=== PATIENT | female | born 1995 | race Caucasian/White ===

== ENCOUNTER 2017-05-03 12:10 | Observation (INO) | payer OTHER ==
[~2017-05-03] VITALS: Ht 160 cm; Wt 86.2 kg
[2017-05-03] MEDS ORDERED: PREN-380 PO (13:50)
== END 2017-05-03 16:49 | disposition home or self-care (01) ==
LOC: MLD 12:10
PROVIDERS: ADMIT Obstetrics & Gynecology; ATTEND Obstetrics & Gynecology
DX: O36.8130 Decreased fetal movements, third trimester, not applicable or unspecified (principal); Z3A.38 38 weeks gestation of pregnancy
CPT/HCPCS: 59025; 76805; 81000; G0378; Q0092

== ENCOUNTER 2017-05-04 10:50 | Inpatient (IN) | payer OTHER ==
[~2017-05-04] VITALS: Ht 160 cm; Wt 86.2 kg
[~2017-05-04 10:50] MED LIST: PREN-380 PO
[2017-05-05] MEDS ORDERED: PROMETHAZINE 25 MG TAB PO PRN (00:10)
[2017-05-05] MEDS ORDERED: NALBUPHINE 10 MG/ML AMP IVP PRN (00:10)
[2017-05-05] MEDS: LACTATED RINGERS 1,000 ML IV SCH ×2 (00:55→08:13)
[2017-05-05] MEDS ORDERED: MISOPROSTOL 25 MCG TAB ONE ×3 (00:57→10:17)
[2017-05-05 01:01] LABS: BASOPHILS # (AUTO) 0.2 K/uL (0.00-0.22); BASOPHILS % (AUTO) 1.5 % (0.0-2.0); EOSINOPHILS # (AUTO) 0.3 K/uL (0-0.4); EOSINOPHILS % (AUTO) 2.2 % (0.0-4.0); HEMATOCRIT 36.5 % (36-48); HEMOGLOBIN 12.3 g/dL (12.0-16.0); LYMPHOCYTES # (AUTO) 2.5 K/uL (2.5-16.5); LYMPHOCYTES % (AUTO) 21.3 % (20.5-51.1); MEAN CORPUSCULAR HEMOGLOBIN 30 pg (27-31); MEAN CORPUSCULAR HGB CONC 34 g/dL (33-37); MEAN CORPUSCULAR VOLUME 89 fL (80-94); MONOCYTES # (AUTO) 0.7 K/uL (0.8-1.0); MONOCYTES % (AUTO) 6.3 % (1.7-9.3); NEUTROPHILS # (AUTO) 8.2 K/uL (1.8-7.7); NEUTROPHILS % (AUTO) 68.7 % (42.2-75.2); PLATELET COUNT (AUTO) 351 K/uL (140-450); RED BLOOD CELL COUNT(AUTO) 4.09 MIL/uL (4.20-5.40); RED CELL DISTRIBUTION WIDTH 13.9 % (11.6-13.7); WHITE BLOOD COUNT (AUTO) 11.9 K/uL (4.5-11.0)
[2017-05-05 01:05] LABS: APPEARANCE,URINE HAZY (CLEAR); BILIRUBIN,URINE NEGATIVE (NEGATIVE); BLOOD, URINE NEGATIVE (NEGATIVE); COLOR,URINE YELLOW (YELLOW); LEUKOCYTE ESTERASE ,URINE 1+ (NEGATIVE); NITRITE, URINE NEGATIVE (NEGATIVE); UGLUCOSE NEGATIVE (NEGATIVE)
[2017-05-05] MEDS: MISOPROSTOL 25 MCG TAB VG PRN ×2 (01:05→05:14)
[2017-05-05 01:34] LABS: RBC,URINE 0-5 (RARE) /HPF (0-5); WBC,URINE 20-60 /HPF (0-5)
[2017-05-05 01:43] VITALS: BP 109/63
[2017-05-05] MEDS ORDERED: BUPIVACAINE 0.125%/NS PREMIX 250 ML EPI SCH (12:20)
[2017-05-05] MEDS ORDERED: BUPIVACAINE 0.125%/NS PREMIX 250 ML ONE (12:24)
[2017-05-05] MEDS ORDERED: CITRIC ACID/SODIUM CITRATE 30 ML UDC PO SCH (14:10)
[2017-05-05] MEDS ORDERED: ceFAZolin 2,000 MG in NACL 0.9% 100 ML IV SCH (14:29)
[2017-05-05] MEDS ORDERED: OXYTOCIN 10 UNITS/ML VIAL ONE (14:30)
[2017-05-05] MEDS ORDERED: CITRIC ACID/SODIUM CITRATE 30 ML UDC ONE (14:33)
[2017-05-05] MEDS ORDERED: MIDAZOLAM 2 MG/2 ML VIAL ONE (14:36)
[2017-05-05] MEDS ORDERED: fentaNYL 0.05 MG/ML VIAL ONE (14:36)
[2017-05-05] MEDS ORDERED: KETAMINE 500 MG/5 ML VIAL ONE (14:36)
[2017-05-05] MEDS ORDERED: MORPHINE PRES FREE 10 MG/10 ML AMP IV ONE (14:37)
[2017-05-05] MEDS ORDERED: ceFAZolin 1,000 MG VIAL IVP ONE (15:05)
[2017-05-05] MEDS ORDERED: KETOROLAC 30 MG/ML VIAL IVP PRN (15:40)
[2017-05-05] MEDS ORDERED: ONDANSETRON 4 MG/2 ML VIAL IVP PRN (15:40)
[2017-05-05] MEDS ORDERED: diphenhydrAMINE 50 MG/ML VIAL IVP PRN (15:40)
[2017-05-05] MEDS ORDERED: diphenhydrAMINE 50 MG/ML VIAL ONE (15:51)
[2017-05-05] MEDS: OXYTOCIN 20 UNITS in LACTATED RINGERS 1,000 ML IV SCH (18:19)
[2017-05-05] MEDS ORDERED: HYDROcodone/APAP 5/325 MG 1 TAB TAB PO PRN ×2 (22:05)
[2017-05-06] MEDS ORDERED: OXYTOCIN 20 UNITS/LR PREMIX 1,000 ML IV ONE (00:18)
[2017-05-06 06:25] LABS: BASOPHILS # (AUTO) 0.1 K/uL (0.00-0.22); EOSINOPHILS # (AUTO) 0.1 K/uL (0-0.4); EOSINOPHILS % (AUTO) 0.5 % (0.0-4.0); HEMOGLOBIN 9.3 g/dL (12.0-16.0); LYMPHOCYTES # (AUTO) 1.8 K/uL (2.5-16.5); LYMPHOCYTES % (AUTO) 13.2 % (20.5-51.1); MEAN CORPUSCULAR HEMOGLOBIN 30 pg (27-31); MEAN CORPUSCULAR HGB CONC 33 g/dL (33-37); MEAN CORPUSCULAR VOLUME 89 fL (80-94); MONOCYTES % (AUTO) 7.3 % (1.7-9.3); NEUTROPHILS # (AUTO) 10.8 K/uL (1.8-7.7); PLATELET COUNT (AUTO) 284 K/uL (140-450); RED BLOOD CELL COUNT(AUTO) 3.14 MIL/uL (4.20-5.40); RED CELL DISTRIBUTION WIDTH 14.1 % (11.6-13.7); WHITE BLOOD COUNT (AUTO) 13.8 K/uL (4.5-11.0)
--- NOTE | 2017-05-06 09:01 | NUR ---
PATIENT HAS BEEN SCREENED AND CATEGORIZED LOW NUTRITION RISK. PATIENT WILL BE SEEN WITHIN 7 DAYS OF ADMISSION. 05/11/[address]
[2017-05-06] MEDS: OXYTOCIN 20 UNITS in LACTATED RINGERS 1,000 ML IV SCH (09:43)
[2017-05-06] MEDS ORDERED: IBUPROFEN 800 MG TAB PO PRN (14:25)
[2017-05-06] MEDS: FERROUS SULFATE 325 MG TABEC PO SCH ×2 (14:36→21:30)
[2017-05-06] MEDS ORDERED: SENNA 8.6 MG TAB PO SCH (21:00)
[2017-05-07] MEDS: FERROUS SULFATE 325 MG TABEC PO SCH ×2 (08:54→14:14)
[2017-05-07] MEDS: SIMETHICONE 80 MG TAB.CHEW PO PRN ×2 (08:55→14:14)
[2017-05-07] MEDS: oxyCODONE/APAP 5/325 MG 1 TAB TAB PO PRN ×2 (08:55→14:13)
[2017-05-07] MEDS ORDERED: IBUP-1801 PO (10:49)
== END 2017-05-07 15:20 | disposition home or self-care (01) | DRG 540 ==
LOC: MLD 10:50 → UNDOADMOB 10:50 → MLD 22:50 → OBSVTOIN 05-05 00:58 → MFCC 05-05 15:00
PROVIDERS: ADMIT Obstetrics & Gynecology; ATTEND Obstetrics & Gynecology
PROC: 10D00Z1 Extraction of Products of Conception, Low, Open Approach (ICD-10-PCS; principal; 2017-05-05 14:30)
DX: O99.214 Obesity complicating childbirth (principal); J45.909 Unspecified asthma, uncomplicated; Z37.0 Single live birth; O99.52 Diseases of the respiratory system complicating childbirth
CPT/HCPCS: G0378 ×2; 36415; 59200; 81001; 85025; 86592; 86886; 86900; 86901; 87086; J0690; J1200; J2250; J2270; J2405; J2590; J3010; J3490; J7060; J7120